=== PATIENT | male | born 1945 | race Caucasian/White ===

== ENCOUNTER 2017-03-25 14:54 | Outpatient (CLI) | payer MEDICARE ==
[2014-07-12 10:53] VITALS: BP 136/78
== END 2017-03-25 14:55 ==
LOC: LAB 14:54
PROVIDERS: ATTEND Internal Medicine Nephrology
DX: N18.3 Chronic kidney disease, stage 3 (moderate) (principal); I10 Essential (primary) hypertension; E11.9 Type 2 diabetes mellitus without complications; I89.0 Lymphedema, not elsewhere classified
CPT/HCPCS: G0463

== ENCOUNTER 2017-04-15 15:25 | Outpatient (CLI) | payer MEDICARE ==
[2014-07-12 10:53] VITALS: BP 136/78
== END 2017-04-15 15:26 ==
LOC: NEPHRO 15:25
PROVIDERS: ATTEND Internal Medicine Nephrology
DX: E11.22 Type 2 diabetes mellitus with diabetic chronic kidney disease (principal); I12.9 Hypertensive chronic kidney disease with stage 1 through stage 4 chronic kidney disease, or unspecified chronic kidney disease; N18.3 Chronic kidney disease, stage 3 (moderate)
CPT/HCPCS: G0463

== ENCOUNTER 2017-05-27 15:39 | Outpatient (CLI) | payer MEDICARE ==
[2014-07-12 10:53] VITALS: BP 136/78
== END 2017-05-27 15:40 ==
LOC: NEPHRO 15:39
PROVIDERS: ATTEND Internal Medicine Nephrology
DX: N18.9 Chronic kidney disease, unspecified (principal); E11.9 Type 2 diabetes mellitus without complications; I10 Essential (primary) hypertension; N25.0 Renal osteodystrophy
CPT/HCPCS: G0463

== ENCOUNTER 2017-08-26 14:43 | Outpatient (CLI) | payer MEDICARE ==
[2014-07-12 10:53] VITALS: BP 136/78
== END 2017-08-26 14:44 ==
LOC: NEPHRO 14:43
PROVIDERS: ATTEND Internal Medicine Nephrology
DX: N18.9 Chronic kidney disease, unspecified (principal); E11.9 Type 2 diabetes mellitus without complications; I10 Essential (primary) hypertension; E21.3 Hyperparathyroidism, unspecified
CPT/HCPCS: G0463

== ENCOUNTER 2017-09-23 15:37 | Outpatient (CLI) | payer MEDICARE ==
[2014-07-12 10:53] VITALS: BP 136/78
== END 2017-09-23 15:40 ==
LOC: NEPHRO 15:37
PROVIDERS: ATTEND Internal Medicine Nephrology
DX: N18.9 Chronic kidney disease, unspecified (principal); N17.9 Acute kidney failure, unspecified; E11.9 Type 2 diabetes mellitus without complications; I10 Essential (primary) hypertension
CPT/HCPCS: G0463

== ENCOUNTER 2017-12-16 14:31 | Outpatient (CLI) | payer MEDICARE ==
[2014-07-12 10:53] VITALS: BP 136/78
== END 2017-12-16 14:33 ==
LOC: NEPHRO 14:31
PROVIDERS: ATTEND Internal Medicine Nephrology
DX: E11.9 Type 2 diabetes mellitus without complications (principal); N18.9 Chronic kidney disease, unspecified; I10 Essential (primary) hypertension
CPT/HCPCS: G0463

== ENCOUNTER 2018-03-31 16:02 | Outpatient (CLI) | payer MEDICARE ==
[2014-07-12 10:53] VITALS: BP 136/78
== END 2018-03-31 16:03 ==
LOC: NEPHRO 16:02
PROVIDERS: ATTEND Internal Medicine Nephrology
DX: I89.0 Lymphedema, not elsewhere classified (principal); N17.9 Acute kidney failure, unspecified
CPT/HCPCS: G0463

== ENCOUNTER 2018-05-26 14:28 | Outpatient (CLI) | payer MEDICARE ==
[2014-07-12 10:53] VITALS: BP 136/78
== END 2018-05-26 14:30 ==
LOC: NEPHRO 14:28
PROVIDERS: ATTEND Internal Medicine Nephrology
DX: E11.22 Type 2 diabetes mellitus with diabetic chronic kidney disease (principal); I13.10 Hypertensive heart and chronic kidney disease without heart failure, with stage 1 through stage 4 chronic kidney disease, or unspecified chronic kidney disease; N18.3 Chronic kidney disease, stage 3 (moderate); Z79.84 Long term (current) use of oral hypoglycemic drugs; G47.33 Obstructive sleep apnea (adult) (pediatric)
CPT/HCPCS: G0463

== ENCOUNTER 2018-09-01 15:00 | Outpatient (CLI) | payer MEDICARE ==
[2014-07-12 10:53] VITALS: BP 136/78
== END 2018-09-01 15:03 ==
LOC: NEPHRO 15:00
PROVIDERS: ATTEND Internal Medicine Nephrology
DX: I12.9 Hypertensive chronic kidney disease with stage 1 through stage 4 chronic kidney disease, or unspecified chronic kidney disease (principal); E11.22 Type 2 diabetes mellitus with diabetic chronic kidney disease; N18.3 Chronic kidney disease, stage 3 (moderate); Z79.4 Long term (current) use of insulin
CPT/HCPCS: G0463

== ENCOUNTER 2018-12-15 14:00 | Outpatient (CLI) | payer MEDICARE ==
[2014-07-12 10:53] VITALS: BP 136/78
== END 2018-12-15 14:30 | disposition home or self-care (01) ==
LOC: NEPHRO 14:00
PROVIDERS: ATTEND Internal Medicine Nephrology
DX: I13.10 Hypertensive heart and chronic kidney disease without heart failure, with stage 1 through stage 4 chronic kidney disease, or unspecified chronic kidney disease (principal); E11.22 Type 2 diabetes mellitus with diabetic chronic kidney disease; N18.3 Chronic kidney disease, stage 3 (moderate); Z79.4 Long term (current) use of insulin; R00.1 Bradycardia, unspecified; R53.83 Other fatigue; N25.0 Renal osteodystrophy; I89.0 Lymphedema, not elsewhere classified; E78.5 Hyperlipidemia, unspecified; E21.3 Hyperparathyroidism, unspecified
CPT/HCPCS: 99214

== ENCOUNTER 2019-01-14 13:10 | Outpatient (CLI) | payer MEDICARE ==
[2014-07-12 10:53] VITALS: BP 136/78
--- NOTE | 2019-01-18 15:06 | OP Clinic Progress Note ---
DATE OF VISIT: 01/14/2019 SUBJECTIVE: Kishan Berkowitz is a 73-year-old male presenting to clinic today for follow-up of previous venous insufficiency ulcers, left lower extremity. The patient was placed in 4-layer compression wrap last visit and is here for follow-up to see how much it was able to help getting more appropriate baseline for compression of the left lower extremity. The patient was also using his own 40 mmHg compression stocking on the right lower extremity to see how well it helped. He admits that there was some pinching in the ankle region from the compression stocking and it does not seem to have helped a ton with compression so far. He is free of ulcers, however, and has not had any ulcers on the right leg that I am aware of. The patient does not admit to any fevers, chills, nausea, vomiting, shortness of breath or chest pain. OBJECTIVE: Vitals: Temperature 98.1 degrees Fahrenheit, heart rate 62, respiration rate 18, blood pressure 110/64. Vascular: 2+ DP and PT pulses were palpated today, bilateral feet. There is still moderate edema noted in the right lower extremity with mild edema on the left lower extremity. There is much greater edema in the upper portion of the left lower extremity, however, where the wrap stopped. This is present the few inches below the knee. Dermatologic: There are no open lesions at this time on the left lower extremity. There is no erythema, open lesions or hyperkeratoses noted bilateral lower extremities. There is no ecchymosis noted or any other skin lesions. There is lots of wrinkled skin on the left lower extremity evident of good compression with the 4-layer compression wrap. Musculoskeletal: There is no pain on palpation, bilateral calves. There were no other gross abnormalities noted, bilateral feet. Neurologic: Light touch sensation is intact to the toes, bilaterally. From a previous exam the 5.07 [place] Monofilament Test was positive/present to all locations, bilateral feet. ASSESSMENT AND PLAN: 1. Lymphedema, bilateral lower extremities, left more than right. 2. History of venous insufficiency ulcers, left lower extremity. 3. Venous insufficiency, bilateral lower extremities. 4. Diabetes mellitus, type 2. 5. Significant history of multiple DVTs. PROCEDURE #1: Four-layer compression wrap was applied to the left lower extremity going all the way up to the distal knee. A small bit of Kerlix was used in the proximal portion of the left lower leg to try and help with the extra swelling at the proximal end. This was done underneath the 4-layer compression wrap. It was discussed with the patient the suggestion of getting a neoprene sleeve of some kind for the ankle on the right lower extremity and to put that on and try and put the compression stocking over the top of that without getting and folds in it in order to limit the possibility of getting any pinching of the compression stocking in the skin near the ankle. The sleeve may help protect that area. It is a suggestion, the patient may do it if he wishes. He was encouraged to be careful not to fold the neoprene sleeve and cause any problems. He knows to look for that. We will plan on doing this 4-layer compression wrap for this next week and the patient is going to come in a week from now for follow-up and we will likely switch him to compression stockings at that time in the left lower extremity and see if it stays fairly well compressed and if we are able to stay free of any venous insufficiency wounds. If this helps, then we will consider getting him into a baseline with 4-layer compression wraps on the right lower extremity and then doing compression stockings at that time to keep it down. If the swelling returns to baseline that was the case before doing the 4-layer compression wraps on the left lower extremity then we will not worry about doing them on the right lower extremity and we will just try and keep him in good 40 mmHg compression stockings, both legs, to try and prevent venous insufficiency ulcers. The patient understands that this is the plan. We will see him for follow-up appointment for a return to clinic visit in 1 week. Fernando Earl D.P.M. (Dictated/Not Signed) Yasmine Job#: [id number] ELSY
== END 2019-01-14 13:35 ==
LOC: POD 13:10
PROVIDERS: ATTEND Podiatrist Foot & Ankle Surgery
DX: I89.0 Lymphedema, not elsewhere classified (principal); I87.2 Venous insufficiency (chronic) (peripheral); E11.9 Type 2 diabetes mellitus without complications
CPT/HCPCS: 29581; 99213; G0463

== ENCOUNTER 2019-01-20 13:49 | Outpatient (CLI) | payer MEDICARE ==
[2014-07-12 10:53] VITALS: BP 136/78
--- NOTE | 2019-02-04 10:02 | OP Clinic Progress Note ---
DATE OF VISIT: 01/20/2019 SUBJECTIVE: Kishan Berkowitz is a 73-year-old male presenting to clinic today for follow-up of awhile ago history of venous insufficiency ulcers, left lower extremity. The patient has been placed in a 4-layer compression wrap the last 2 visits and is here for follow-up to see if we are ready to switch him into a 40 mmHg compression stocking on the left lower extremity. The patient also was placed in the ankle sleeve that he had at home already underneath the overlying 40 mm compression stocking on the right lower extremity to see if it helped limit the pinching in the ankle region from the stockings. The patient states that he finally found the ankle sleeve about 2 days ago and felt that it was doing much better with ankle sleeve in the last 2 days versus before with just the compression stocking on the right lower extremity. He is free of ulcers and has no concerns at this time except wanting to continue treatment to see if the 4-layer wraps get him at a better baseline to transition to compression stockings. The patient does not admit to any fevers, chills, nausea, vomiting, shortness of breath or chest pain. OBJECTIVE: Vitals: Temperature 98.1 degrees Fahrenheit, heart rate 53, respiration rate 20, blood pressure 131/58, O2 sat 95% on room air. Vascular: 2+ DP and PT pulses, bilateral feet. Capillary refill time is less than 3 seconds to the toes bilaterally. There is moderate edema noted on the right lower extremity and more mild edema noted on the left lower extremity but more moderate on the upper portion of the left lower leg near the knee. Dermatologic: It is obvious that the 4-layer compression wraps were sagging and moving down the leg and creating increased pressure at the ankle. There were no concerning lesions of any kind bilateral lower extremities. There was no abnormal discoloration or darkening. There was no erythema or open lesions. There is wrinkled skin on the left lower extremity which is also still evident of the compression with the 4-layer wrap on the left lower extremity. The right leg is still fairly moderately swollen. Musculoskeletal: There is no pain on palpation, bilateral calves. There were no other gross abnormalities noted, bilateral feet. Neurologic: Light touch sensation is intact to the toes, bilaterally. Again, from a previous exam the 5.07 [place] Monofilament Test was positive/present at all locations, bilateral feet. This was not tested today. ASSESSMENT AND PLAN: 1. Lymphedema, bilateral lower extremities. 2. History of venous insufficiency ulcers, left lower extremity. 3. Venous insufficiency, bilateral lower extremities. 4. Diabetes mellitus, type 2. 5. Significant history of DVTs. There were no procedures performed today. The 4-layer compression wrap was removed and the right ankle sleeve was moved to the left ankle and the compression stocking was applied on that side. The patient did not bring his other compression stocking in but stated that he would put his other compression stocking on the right lower extremity as soon as he got home. 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 This was written and sent over today by fax. I discussed with the patient again today the plan to see how he does with the neoprene sleeve on the left ankle with the compression stocking and encouraged him to get another ankle sleeve on the right to use with a compression stocking at home that he has. He states that he has 40 mmHg compression stockings. The prescription sent was for 30-40 mmHg again today. The patient knows that we are seeing if he establishes a better new baseline on the left lower extremity going back to regular compression stockings at this time. If the compression seems better than what it was before, then we will consider doing the same cycle to get a better baseline on the right lower extremity as well. If it develops pretty significant swelling again then we will need to avoid doing this on the right lower extremity and we will encourage him to follow up with his primary care regarding any other options for getting swelling down in the legs. The patient had no further questions. Return to the clinic in 1 week to follow up and see if he improves and keeps a better baseline of swelling in the left lower extremity. Gisel GutierrezP.M. (Dictated/Not Signed) Yasmine Job#: [id number] MTDD
== END 2019-01-20 14:30 ==
LOC: POD 13:49
PROVIDERS: ATTEND Podiatrist Foot & Ankle Surgery
DX: I87.2 Venous insufficiency (chronic) (peripheral) (principal); E11.9 Type 2 diabetes mellitus without complications; I89.0 Lymphedema, not elsewhere classified
CPT/HCPCS: 29581; 99212; G0463

== ENCOUNTER 2019-01-28 13:18 | Outpatient (CLI) | payer MEDICARE ==
[2014-07-12 10:53] VITALS: BP 136/78
--- NOTE | 2019-02-02 16:26 | OP Clinic Progress Note ---
DATE OF VISIT: 01/28/2019 SUBJECTIVE: Kishan Berkowitz is a 73-year-old male presenting to clinic today for follow up of bilateral lower extremity lymphedema/venous insufficiency. The patient previously had been doing four layer compression wraps to try and get to a baseline of compression on the left lower extremity and last week we had the patient in compression stockings with neoprene ankle sleeves of some kind to try and help disallow the pinching in the ankle area that happened from the compression stockings. The goal was to see if the swelling/edema would resume to what it was before doing the compression dressings or if we would get a better baseline. The patient presents today and states that he is getting some discomfort with the ankle sleeve that he puts underneath the compression stockings. His compression stockings he admits are quite old. The patient is willing and wanting to go buy another pair of compression stockings and will go take care of that with the prescription that we already sent recently. The patient does not admit to any fever, chills, nausea, vomiting, shortness of breath or chest pain. He does admit to having this feeling of feeling asleep in his legs at times and we discussed he will probably need to talk to Dr. Resendiz about this, his primary care physician, and may need a back workup as he has a history of L4 issues. The patient related this to us today. Again, he does not admit to any fevers, chills, nausea, vomiting, shortness of breath or chest pain. OBJECTIVE: Vitals: Temperature 98.3, heart rate 54, respiration rate 16, blood pressure 145/66. O2 sat 91% on room air. Vascular: Palpable DP and PT pulses, bilaterally. SPARE HAND is less than 3 seconds to the toes bilaterally. There is pretty severe edema noted outside the area where the ankle sleeve was on bilateral feet including from the toes up to the distal knee. Dermatologic: There is no erythema or open lesions or areas of concern at this time. There were no hyperkeratosis noted bilaterally. Musculoskeletal: There is no pain on palpation noted nor any obvious gross abnormalities noted today. He does have some digital contractures, but that is it. Neurologic: Light touch sensation is intact to the toes bilaterally. ASSESSMENT AND PLAN: 1. Lymphedema, bilateral lower extremities. 2. History of venous insufficiency ulcer left lower extremity. 3. Venous insufficiency bilateral lower extremities. 4. Diabetes mellitus type 2. 5. Significant history of DVTs. The patient has definitely increased in his swelling above where I hoped his new baseline would be on the left lower extremity as he was back in the normal compression stocking. I discouraged any more use of the ankle sleeves if the patient feels like it is causing pain in his ankles where they seem to pinch as the skin above the ankle sleeves is much more swollen. The patient does not want to use the ankle sleeves any more. I have encouraged the patient to get a new pair of compression stockings to see if they are not as stretched out and if they will do better keeping the swelling down in his legs. The patient states that he will do that today. We discussed the need to probably have him followup with Dr. Resendiz if he is not improving as there is not much else I can consider doing outside of what we have done to try and get him to a better baseline of compression in his legs. The patient understands this. Return to clinic in one to two weeks to follow up on if his new compression stockings are doing any better and then to likely refer to Dr. Resendiz if he is not improving enough. Dr. Resendiz will potentially be able to make some medication adjustments or some diet restrictions to help the patient. The patient will also be here in one or two weeks so that we can trim his toenails and get him on an established every three month or so visit to trim the nails and check his feet. The patient is happy with this plan as we were unable to do the toenails today and we will see him in one to two weeks to do that. Gisel GutierrezP.M.(Dictated/not signed) /Accutype [id number] /mab MTDD
== END 2019-01-28 13:50 ==
LOC: POD 13:18
PROVIDERS: ATTEND Podiatrist Foot & Ankle Surgery
DX: I89.0 Lymphedema, not elsewhere classified (principal); I87.2 Venous insufficiency (chronic) (peripheral); E11.9 Type 2 diabetes mellitus without complications
CPT/HCPCS: 99213

== ENCOUNTER 2019-03-16 14:59 | Outpatient (CLI) | payer MEDICARE ==
[2014-07-12 10:53] VITALS: BP 136/78
== END 2019-03-16 15:29 ==
LOC: NEPHRO 14:59
PROVIDERS: ATTEND Internal Medicine Nephrology
DX: E11.22 Type 2 diabetes mellitus with diabetic chronic kidney disease (principal); I12.9 Hypertensive chronic kidney disease with stage 1 through stage 4 chronic kidney disease, or unspecified chronic kidney disease; N18.3 Chronic kidney disease, stage 3 (moderate); G47.33 Obstructive sleep apnea (adult) (pediatric)
CPT/HCPCS: 99213; G0463